=== PATIENT | female | born 1935 | race Caucasian/White ===

== ENCOUNTER 2023-12-11 11:32 | Emergency (ER) | payer MEDICARE ==
[~2023-12-11] VITALS: Ht 157.5 cm; Wt 66.0 kg
--- NOTE | ~2023-12-11 | EKG ---
[facility] [address] [place], [place] [address] Draft EK completed, results pending confirmation PATIENT NAME: CLARISSA UREÑA Electrocardiogram DATE OF : [birth year] PHYSICIAN: PRELIMINARY REPORT #: [id number] REPORT IS CONFIDENTIAL AND NOT TO BE RELEASED WITHOUT AUTHORIZATION
[~2023-12-11 11:32] MED LIST: CLOBETASOL PROP59 ML TOP; FLUTICASONE-SA1 EAC4; LEVOTHYROXINE125 MCG PO; TRIAMTERENE-HC1 EAC3 PO
[2023-12-11 12:31] LABS: BASOPHILS 0.2 % (0-2); HEMOGLOBIN 12.9 g/dL (12.0-18.0); LYMPHOCYTES 3.7 % (24-44); MCH 30.1 (27-36); MCHC 33.1 g/dl (30-36); MCV 91.1 fl (81-99); MONOCYTES 6.4 % (0-12); NEUTROPHILS 89.7 % (39-80); PLATELET COUNT 253 K/uL (140-440); RBC 4.29 M/ul (4.3-5.7); RDW 14.5 (10.5-15.0)
[2023-12-11 12:40] LABS: INR 1.1 (0.80-1.30); PROTIME 13.9 Sec (11.2-14.2)
[2023-12-11 12:45] LABS: ALBUMIN 3.1 g/dL (3.4-5.0); ALBUMIN/GLOBULIN RATIO 0.76 (1.1-2.4); ANION GAP 15.4 (7-21); BILIRUBIN, TOTAL 0.8 ng/dL (0.2-1.0); BUN/CREATININE RATIO 31.64 (6.0-28.6); CALCIUM 9.3 mg/dL (8.5-10.1); CREATININE, SERUM 0.79 mg/dL (0.55-1.02); POTASSIUM 3.4 mmol/L (3.5-5.1); PROTEIN, TOTAL 7.2 g/dL (6.4-8.2)
[2023-12-11 14:30] VITALS: BP 136/72
[2023-12-11] MEDS ORDERED: fentaNYL citrate 100 MCG/2 ML VIAL IV ONE (14:30)
== END 2023-12-11 14:30 | disposition short-term general hospital (02) ==
LOC: ED 11:32
PROVIDERS: Family Medicine
DX: S72.012A Unspecified intracapsular fracture of left femur, initial encounter for closed fracture (principal); J45.909 Unspecified asthma, uncomplicated; E03.9 Hypothyroidism, unspecified; Z79.899 Other long term (current) drug therapy; W18.39XA Other fall on same level, initial encounter; Y92.009 Unspecified place in unspecified non-institutional (private) residence as the place of occurrence of the external cause; Y93.K9 Activity, other involving animal care
CPT/HCPCS: 36415; 51702; 73502; 80053; 81001; 85025; 85610; 93005; 93010; 99285-25; J3010